=== PATIENT | female | born 1930 | race Caucasian/White ===

== ENCOUNTER 2017-11-23 10:19 | Inpatient (IN) | payer OTHER ==
[2017-11-23 10:58] VITALS: BMI 18.8
--- NOTE | 2017-11-23 11:03 | PDOC ---
History of Present Illness - General Chief Complaint: Irregular Heart Beat Stated Complaint: UNSTABLE HEART RHYTHM Time Seen by Provider: 11/23/17 11:03 - History of Present Illness Initial Comments: 11/23/17 11:38 Chief complaint weakness difficulty breathing History of present illness: This is an 85-year-old woman with past medical history significant for hypertension, Alzheimer dementia per family who presents to the emergency department with several day history of generalized weakness. Today was found to have a fast heart rate and hypoxia and decreased breath sounds per the visiting doctor and was sent to the emergency department via ambulance. History limited from patient secondary to dementia. History obtained from family at bedside. No vomiting no diarrhea no foul-smelling urine very close to baseline mental status may be slightly more lethargic than usual no history of trauma Past History - Past Medical History Allergies/Adverse Reactions: Allergies Allergy/AdvReac Type Severity Reaction Status Date / Time No Known Allergies Allergy Verified 11/23/17 10:43 Home Medications: Ambulatory Orders Memantine HCl [Namenda -] 5 mg PO DAILY 11/23/17 Memantine HCl [Namenda -] 10 mg PO HS 11/23/17 Anemia: Yes (FERNANDEZ CYTOPENIA) COPD: No Dementia: Yes HTN: Yes (IN THE PAST) Hypercholesterolemia: Yes - Surgical History Cholecystectomy: Yes - Immunization History Immunization Up to Date: No - Suicide/Smoking/Psychosocial Hx Smoking History: Never smoked Have you smoked in the past 12 months: No Hx Alcohol Use: No Drug/Substance Use Hx: No Substance Use Type: None Review of Systems - Review of Systems Comments:: 11/23/17 11:38 ROS: A complete review of 10 out of 10 review of systems is taken and is negative apart from what is previously mentioned below and in the HPI from the family *Physical Exam - Vital Signs Last Vital Signs Temp Pulse Resp BP Pulse Ox 100.1 F H 88 26 H 156/72 97 11/23/17 10:42 11/23/17 10:42 11/23/17 10:42 11/23/17 10:42 11/23/17 10:42 - Physical Exam Comments: 11/23/17 11:39 Vitals: Triage Vital signs reviewed General Appearance: no acute distress, well nourished well developed, Head: Atraumatic, Eyes: Pupils equal reactive round, extraocular movement intact Throat: Posterior oropharynx without erythema, mucous membranes moist, Neck: Supple;No Nucal rigidity Chest Wall: Nontender Cardiac: Regular rate and rhythym, no murmurs, no rubs, no gallops, Lungs: Coarse breath sounds bilaterally decreased breath sounds Abdomen: Soft, non distended, normal bowel sounds, non tender to palpation Extremities: Full range of motion to all extremities, no cyanosis, clubbing, or edema Skin: Warm and dry, no rashes or lesions, no rash, no petechiae Neuro: Cranial Nerves 2-12 grossly intact], Strength intact to all extremities, Sensation intact to all extremities,gait normal Psych: normal mood, normal affect ED Treatment Course - LABORATORY CBC & Chemistry Diagram: 11/23/17 11:40 11/23/17 11:40 Medical Decision Making - Medical Decision Making 11/23/17 11:43 Fever hypoxia tachypnea history examination consistent for possible early Sirs secondary to respiratory infection We'll check blood cultures chest x-ray influenza swab albuterol MDI oxygen and reassess 11/23/17 15:55 History examination chest x-ray findings most consistent with pneumonia. Given initial fever and tachypnea hypoxia for inspection antibiotics ordered. Patient noted to be anemic compared to laboratory analysis from 2015 hospitalist will follow-up Potassium being repleted Patient made DNR/DNI after long discussion with family We'll admit to hospitalist for further management *DC/Admit/Observation/Transfer Diagnosis at time of Disposition: Pneumonia Qualifiers: Pneumonia type: due to unspecified organism Laterality: bilateral Lung location : unspecified part of lung Qualified Code(s): J18.9 - Pneumonia, unspecified organism - Discharge Dispostion Condition at time of disposition: Fair Admit: Yes - Referrals Referrals: Poncho Velarde [Primary Care Provider] - - Patient Instructions - Post Discharge Activity
[2017-11-23] MEDS ORDERED: ACETAMINOPHEN 1000 MG/100 ML VIAL (NON FORMULARY) IVPB ONE (11:15)
[2017-11-23] MEDS ORDERED: ALBUTEROL SO4 18 GM HFA INHALER IH ONE (11:44)
[2017-11-23] MEDS ORDERED: ACETAMINOPHEN INJECTION 100 ML IVPB ONE (12:03)
[2017-11-23 12:26] LABS: ALBUMIN 1.3 g/dl (3.5-5.0); ALK PHOS 113 U/L (32-92); ANION GAP 4 (8-16); BILIRUBIN,TOTAL 0.6 mg/dl (0.2-1.0); BLOOD UREA NITROGEN 18 mg/dl (7-18); CALCIUM 7.1 mg/dl (8.4-10.2); CHLORIDE 101 mmol/L (98-107); CO2 30 mmol/L (22-28); CREATININE 0.7 mg/dl (0.6-1.3); GLUCOSE,RANDOM 102 mg/dl (74-106); SGOT/AST 43 U/L (10-42); SGPT/ALT 25 U/L (10-40); SODIUM 135 mmol/L (136-145); TOT PROT 5.1 g/dl (6.4-8.3)
[2017-11-23 12:42] LABS: EOS % 0.1 % (0-4.5); HEMATOCRIT 22.1 % (32.4-45.2); HEMOGLOBIN 7.4 GM/dl (10.7-15.3); MCH 36.2 pg (25.7-33.7); MCHC 33.3 g/dl (32.0-36.0); MEAN CELL VOLUME 108.7 fl (80-96); MEAN PLT VOLUME 8.6 fl (7.5-11.1); MONO % 1.1 % (3.8-10.2); NEUT % 86.8 % (42.8-82.8); PLATELET COUNT 83 K/MM3 (134-434); RBC 2.03 M/mm3 (3.60-5.2); RDW 13.3 % (11.6-15.6); WHITE BLOOD COUNT 2.1 K/mm3 (4.0-10.8)
[2017-11-23] MEDS ORDERED: PIPERACILLIN/TAZOB 3.375 GM 50 ML IVPB ONE (12:50)
[2017-11-23 12:56] LABS: POTASSIUM 2.6 mmol/L (3.5-5.1)
[2017-11-23] MEDS ORDERED: PIPERACIL/TAZOB 3.375 GM 3.375 GM/50 ML PREMIX IVPB ONE (13:00)
[2017-11-23 13:06] LABS: ACTIVATED PTT 20.2 SECONDS (24.0-38.9)
[2017-11-23] MEDS ORDERED: POTASSIUM CHLORIDE TABS 20 MEQ TABLET.ER (FP) PO ONE ×3 (13:06→18:58)
[2017-11-23 13:10] LABS: INR 1.37 (0.82-1.09); PROTHROMBIN TIME (PATIENT) 15.2 SEC (10.2-13.0)
[2017-11-23] MEDS ORDERED: KCL 10 MEQ IVPB 10 MEQ/100 ML INFUS.BAG IVPB ONE ×2 (13:13→14:17)
[2017-11-23] MEDS ORDERED: PIPERACILLIN/TAZOBACTAM 3.375 GM VIAL IVPB ONE (13:13)
[2017-11-23] MEDS: KCL 10 MEQ IVPB 10 MEQ/100 ML INFUS.BAG IVPB SCH ×3 (13:15→15:45)
[2017-11-23 13:33] LABS: VENOUS PH 7.47 (7.32-7.42); VENOUS PO2 24.2 mmHg (28-48)
[2017-11-23] MEDS ORDERED: ACETAMINOPHEN 325 MG TABLET (FP) PO PRN (15:58)
--- NOTE | 2017-11-23 16:04 | HP ---
CHIEF COMPLAINT: shortness of breath PCP: Dr Velarde HISTORY OF PRESENT ILLNESS: patient is a 85 y/o female with a past medical history of hypertension, Alzheimer' dementia, pancytopenia. Patient is a poor historian secondary to advanced dementia, history obtained from daughters. Patient resides at home with her and is cared for by both daughters. The daughters report, patient developed decreased appetite and generalized weakness, since Sunday, November 17, 2017. Daughter reports the weakness was progressing and she contacted the PCP. Patient was evaluated by her PCP, Dr Velarde at home and was found to have hypoxia and fast heart rate. She was referred to the emergency department for further evaluation. ER course was notable for: (1) temp 100.2 (2) hgb 7.2 (3)chest xray congestive and infilitrative changes Recent Travel: none PAST MEDICAL HISTORY: see hpi PAST SURGICAL HISTORY: cholesytecomy and hysterectomy Social History: resides at home with 92 year old ,daughters are primary care givers Smoking: none as per daughters Alcohol:none Drugs: none Family History: non contributory to this admission Allergies No Known Allergies Allergy (Verified 11/23/17 10:43) HOME MEDICATIONS: Home Medications Medication Instructions Recorded Memantine HCl [Namenda -] 5 mg PO DAILY 11/23/17 Memantine HCl [Namenda -] 10 mg PO HS 11/23/17 REVIEW OF SYSTEMS CONSTITUTIONAL: present: generalized weakness, malaise, loss of appetite, Absent: fever, chills, diaphoresis, weight change HEENT: Absent: rhinorrhea, nasal congestion, throat pain, throat swelling, difficulty swallowing, mouth swelling, ear pain, eye pain, visual changes CARDIOVASCULAR: Absent: chest pain, syncope, palpitations, irregular heart rate, lightheadedness , peripheral edema RESPIRATORY: present: shortness of breath Absent: cough,, dyspnea with exertion, orthopnea, wheezing, stridor, hemoptysis GASTROINTESTINAL: Absent: abdominal pain, abdominal distension, nausea, vomiting, diarrhea, constipation, melena, hematochezia GENITOURINARY: Absent: dysuria, frequency, urgency, hesitancy, hematuria, flank pain, genital pain MUSCULOSKELETAL: Absent: myalgia, arthralgia, joint swelling, back pain, neck pain SKIN: Absent: rash, itching, pallor HEMATOLOGIC/IMMUNOLOGIC: Absent: easy bleeding, easy bruising, lymphadenopathy, frequent infections ENDOCRINE: Absent: unexplained weight gain, unexplained weight loss, heat intolerance, cold intolerance NEUROLOGIC: Absent: headache, focal weakness or paresthesias, dizziness, unsteady gait, seizure, mental status changes, bladder or bowel incontinence PSYCHIATRIC: Absent: anxiety, depression, suicidal or homicidal ideation, hallucinations. PHYSICAL EXAMINATION Vital Signs - 24 hr 11/23/17 11/23/17 11/23/17 10:42 11:30 12:30 Temperature 100.1 F H Pulse Rate 86 Pulse Rate [ 79 86 Apical] Respiratory 26 H 19 19 Rate Blood Pressure 156/72 Blood Pressure 114/70 132/70 [Right Arm] O2 Sat by Pulse 97 96 96 Oximetry (%) 11/23/17 11/23/17 11/23/17 13:30 14:30 15:21 Temperature Pulse Rate Pulse Rate [ 74 80 67 Apical] Respiratory 21 17 21 Rate Blood Pressure Blood Pressure 122/64 126/70 121/70 [Right Arm] O2 Sat by Pulse 94 L 93 L 92 L Oximetry (%) GENERAL: Awake, alert, and fully oriented times person, agitated. HEAD: Normal with no signs of trauma. EYES: Pupils equal, round and reactive to light, extraocular movements intact, sclera anicteric, conjunctiva clear. No lid lag. EARS, NOSE, THROAT: Ears normal, nares patent, oropharynx clear without exudates. Moist mucous membranes. NECK: Normal range of motion, supple without lymphadenopathy, JVD, or masses. LUNGS: Breath sounds equal, course rhonchi to apexes, crackles to base with inspiratory wheezes, RR 24, No accessory muscle use. HEART: Regular rate and rhythm, normal S1 and S2 without murmur, rub or gallop. ABDOMEN: Soft, nontender, not distended, normoactive bowel sounds, no guarding, no rebound, no masses. No hepatomegaly or splenomegaly. MUSCULOSKELETAL: Normal range of motion at all joints. No bony deformities or tenderness. No CVA tenderness. UPPER EXTREMITIES: 2+ pulses, warm, well-perfused. No cyanosis. No clubbing. No peripheral edema. LOWER EXTREMITIES: 2+ pulses, warm, well-perfused. No calf tenderness. No peripheral edema. NEUROLOGICAL: Cranial nerves II-XII intact. Normal speech. Normal gait. PSYCHIATRIC: Cooperative. Good eye contact. Appropriate mood and affect. SKIN: Warm, dry, normal turgor, no rashes or lesions noted, normal capillary refill. Laboratory Results - last 24 hr 11/23/17 11/23/17 11/23/17 11:40 11:40 11:40 WBC 2.1 L D RBC 2.03 L D Hgb 7.4 L D Hct 22.1 L D MCV 108.7 H MCH 36.2 H D MCHC 33.3 RDW 13.3 Plt Count 83 L MPV 8.6 Neutrophils % 86.8 H Lymphocytes % 12.0 Monocytes % 1.1 L Eosinophils % 0.1 Basophils % 0.0 PT with INR 15.2 H INR 1.37 H PTT (Actin FS) 20.2 L VBG pH 7.47 H POC VBG pCO2 44.0 POC VBG pO2 24.2 L Mixed VBG HCO3 31.6 H Sodium Potassium Chloride Carbon Dioxide Anion Gap BUN Creatinine Creat Clearance w eGFR Random Glucose Lactic Acid Calcium Total Bilirubin AST ALT Alkaline Phosphatase Creatine Kinase Troponin I Total Protein Albumin 11/23/17 11/23/17 11:40 11:40 WBC RBC Hgb Hct MCV MCH MCHC RDW Plt Count MPV Neutrophils % Lymphocytes % Monocytes % Eosinophils % Basophils % PT with INR INR PTT (Actin FS) VBG pH POC VBG pCO2 POC VBG pO2 Mixed VBG HCO3 Sodium 135 L Potassium 2.6 L* D Chloride 101 Carbon Dioxide 30 H Anion Gap 4 L BUN 18 Creatinine 0.7 Creat Clearance w eGFR > 60 Random Glucose 102 D Lactic Acid 1.3 Calcium 7.1 L D Total Bilirubin 0.6 D AST 43 H D ALT 25 D Alkaline Phosphatase 113 H D Creatine Kinase Cancelled Troponin I Cancelled Total Protein 5.1 L Albumin 1.3 L D ASSESSMENT/PLAN: F/E/N - chopped diet - speech and swallow eval hypokalemia - kci 10meq x 3 given in ED, repeat bmp at 1700 - continous cardiac monitoring ppx - zantac - hold ac due to pancytopenia - scd - oob dispo: pt requires inpatient admission Problem List - Problem (1) Hypertension Assessment/Plan: - no home medications, b/p at goal - b/p q4h Code(s): I10 - ESSENTIAL (PRIMARY) HYPERTENSION (2) Alzheimer's dementia Assessment/Plan: - continue namenda home dosing - fall precautions Code(s): G30.9 - ALZHEIMER'S DISEASE, UNSPECIFIED; F02.80 - DEMENTIA IN OTH DISEASES CLASSD ELSWHR W/O BEHAVRL DISTURB (3) Pancytopenia Assessment/Plan: - hx of pancytopenia, monitor platelets, repeat cbc at 1800 Code(s): D61.818 - OTHER PANCYTOPENIA (4) Pneumonia Assessment/Plan: - chest xray reviewed, ct of chest, multiple bilateral upper and lower lung loco avelor infilitrates, possible intersital vascular congestion - pending urine antigens, follow blood cultures, monitor fever curve, zosyn given in ED, pt does reside at home, due to multilobar infilirates continue zosyn, appreciate ID input - standing duonebs, keep spo2 above 92% with supplemental O2 Code(s): J18.9 - PNEUMONIA, UNSPECIFIED ORGANISM Qualifiers: Pneumonia type: due to unspecified organism Laterality: bilateral Lung location: unspecified part of lung Qualified Code(s): J18.9 - Pneumonia, unspecified organism Visit type - Emergency Visit Emergency Visit: Yes ED Registration Date: 11/23/17 Care time: The patient presented to the Emergency Department on the above date and was hospitalized for further evaluation of their emergent condition. - New Patient This patient is new to me today: Yes Date on this admission: 11/23/17 - Critical Care Critical Care patient: No
[2017-11-23 16:49] LABS: PH,URINE 5.5 (4.5-8); URINE APPEARANCE Clear; URINE BILIRUBIN Negative (NEGATIVE); URINE BLOOD Negative (NEGATIVE); URINE GLUCOSE (UA) Negative (NEGATIVE); URINE KETONE Negative (NEGATIVE); URINE LEUK ESTERASE Negative (NEGATIVE); URINE NITRITE Negative (NEGATIVE)
[2017-11-23 16:53] LABS: URINE COLOR YELLOW; URINE PROTEIN 1+ (NEGATIVE)
[2017-11-23] MEDS ORDERED: ALBUTEROL SO4 2.5/IPRATROPIUM 0.5 INH SOL 3 ML VIAL.NEB. NEB ONE ×2 (17:48→18:57)
[2017-11-23] MEDS ORDERED: VANCOMYCIN 1,000 MG in DEXTROSE 5%-WATER - 250 ML IVPB ONE (17:51)
[2017-11-23 18:36] LABS: HEMATOCRIT 20.5 % (32.4-45.2); MCH 36.2 pg (25.7-33.7); MCHC 33.1 g/dl (32.0-36.0); MEAN CELL VOLUME 109.2 fl (80-96); MEAN PLT VOLUME 8.2 fl (7.5-11.1); PLATELET COUNT 69 K/MM3 (134-434); RBC 1.88 M/mm3 (3.60-5.2); RDW 13.3 % (11.6-15.6); WHITE BLOOD COUNT 1.9 K/mm3 (4.0-10.8)
[2017-11-23] MEDS ORDERED: VANCOMYCIN 1,000 MG VIAL (RESTRICTED TO ID ONLY) ONE (18:36)
[2017-11-23 18:44] LABS: HEMOGLOBIN 6.8 GM/dl (10.7-15.3)
[2017-11-23 18:47] LABS: ANION GAP 2 (8-16); BLOOD UREA NITROGEN 16 mg/dl (7-18); CHLORIDE 106 mmol/L (98-107); CO2 28 mmol/L (22-28); CREATININE 0.6 mg/dl (0.6-1.3); GLUCOSE,RANDOM 120 mg/dl (74-106); MAGNESIUM 1.7 mg/dL (1.8-2.4); POTASSIUM 3.3 mmol/L (3.5-5.1); SODIUM 136 mmol/L (136-145)
[2017-11-23 18:48] LABS: CALCIUM 6.8 mg/dl (8.4-10.2)
[2017-11-23] MEDS ORDERED: MAGNESIUM SULF 50% (8.12 MEQ/2 ML-1 GM VIAL) ONE (18:58)
[2017-11-23] MEDS ORDERED: FUROSEMIDE 40 MG/4 ML INJECTABLE VIAL IVPUSH ONE (19:00)
[2017-11-23] MEDS: POTASSIUM CHLORIDE TABS 20 MEQ TABLET.ER (FP) PO ONE (19:00)
[2017-11-23] MEDS: MAGNESIUM SULFATE 2 GM in SODIUM CHLORIDE 100 ML IVPB ONE (19:05)
[2017-11-23] MEDS ORDERED: FUROSEMIDE 40 MG/4 ML INJECTABLE VIAL ONE (19:20)
[2017-11-23] MEDS ORDERED: LORazepam 2 MG/ML SDV VIAL IVPUSH ONE (20:15)
[2017-11-23] MEDS ORDERED: LORazepam 2 MG/ML SDV VIAL ONE (20:21)
[2017-11-23 20:29] LABS: EPI CELLS FEW /HPF; URINE BACTERIA MODERATE /hpf (NEGATIVE); URINE RBC 0-2 /hpf (0-3); URINE WBC 0-1 (0-5)
[2017-11-23] MEDS: ALBUTEROL SO4 2.5/IPRATROPIUM 0.5 INH SOL 3 ML VIAL.NEB. NEB SCH (20:36)
[2017-11-23 21:48] LABS: MACROCYTOSIS 1+; PLATELET ESTIMATE DECREASED
[2017-11-23] MEDS ORDERED: MEMANTINE HCL 10 MG TABLET (FP) PO SCH (22:00)
[2017-11-24] MEDS: PIPERACILLIN/TAZOB 3.375 GM 3.375 GM in DEXTROSE 5%-WATER - 100 ML IVPB SCH ×3 (03:00→18:15)
[2017-11-24] MEDS: DOCUSATE SODIUM 100 MG CAPSULE (FP) PO SCH ×2 (03:47→06:35)
[2017-11-24] MEDS: MAGNESIUM SULFATE 2 GM in SODIUM CHLORIDE 100 ML IVPB ONE (03:47)
[2017-11-24] MEDS: ALBUTEROL SO4 2.5/IPRATROPIUM 0.5 INH SOL 3 ML VIAL.NEB. NEB SCH ×4 (08:10→20:16)
--- NOTE | 2017-11-24 08:38 | PN ---
Progress Note (short form) - Note Progress Note: ID Consult dictated Multilobar pneumonia Sepsis secondary to pneumonia Pancytopenia (chronic) ANC 1.7 OBS Await cultures Continue empiric zosyn + stat dose vancomycin ?transfuse
--- NOTE | 2017-11-24 09:05 | CONS ---
DATE OF CONSULTATION: HISTORY: The patient is an 87-year-old demented female admitted from home with pneumonia. History was obtained from the chart as she cannot give a history secondary to dementia. She had apparently had increasing weakness and anorexia for several days at home. She was seen by her primary care doctor at home. She was noted to be tachypneic and tachycardic. She was referred to the emergency room for evaluation. Imaging of the chest reveals bilateral pleural effusions, bibasilar impressive atelectasis, right upper, left upper, and left lower lobe infiltrates. She was empirically treated with Zosyn. At the present time, she is awake. She is not verbally responsive. She offers no complaints. She appears to be dyspneic at rest with occasional cough. The patient lives at home. No known ill contacts. No recent hospitalizations. She is a nonsmoker. Influenza swab was negative. The patient has a history of pancytopenia dating back to at least 2014. PAST MEDICAL HISTORY: Positive for dementia, hypertension, pancytopenia. PAST SURGICAL HISTORY: Status post cholecystectomy and hysterectomy. ALLERGIES: No known allergies. MEDICATIONS: Namenda. SOCIAL HISTORY: Lives at home. Nonsmoker. Nondrinker. SYSTEMS REVIEW: Neurologic: Positive for dementia. No loss of consciousness, seizure activity, or focal weakness. Cardiac: Negative chest pain. Respiratory: As per HPI. Gastrointestinal: Negative vomiting or diarrhea. Genitourinary: Negative for urinary tract infection. LABORATORY DATA: White count 1.9 with 80 neutrophils, 10 bands, 10 lymphocytes, absolute neutrophil count 1.7, hematocrit 20.5, platelet count 69, BUN 16, creatinine 0.6. Urinalysis: 0-1 white cell. Influenza swab negative. Blood cultures pending. Legionella and pneumococcal antigens pending. Sputum culture ordered. PHYSICAL EXAMINATION: General: She is an elderly female. She is cachectic. Slightly dyspneic at rest. Vital Signs: Temperature 98.2, T-max 100.1, blood pressure 150/82, pulse 93 and regular, respirations 20 per minute. HEENT: Sclerae anicteric. Temporal wasting. Dry mucous membranes. Heart: Sounds S1, S2. No murmur. Lungs: Bilateral rhonchi and crepitations right greater than left lung field. Abdomen: Soft. No tenderness elicited. No mass, rebound, or rigidity. Extremities: Negative for edema. The right lower extremity is held in a flexed position, and the patient cries out when it is extended. IMPRESSION: 1. Multilobar pneumonia. 2. Sepsis secondary to pneumonia. 3. Pancytopenia. 4. Dementia. PLAN: Await culture results. Continue empiric Zosyn plus STAT dose vancomycin. Pending culture results, would consider blood transfusion. Thank you for the kind referral. LAMONTE ZABALA M.D. [id number]
--- NOTE | 2017-11-24 09:36 | PN ---
Physical Exam: SUBJECTIVE: Patient seen and examined. OBJECTIVE: Vital Signs Period Temp Pulse Resp BP Sys/Rocha Pulse Ox Last 24 Hr 97.1 F-100.1 F 67-104 17-26 114-156/59-82 81-97 GENERAL/NEURO: The patient does not respond to verbal commands. Thin, frail, cachectic. Temporal wasting. Protruding clavicles. LUNGS: Tachypnic, +accessory muscle use. Diffuse rhonchi. HEART: Regular rate and rhythm, S1, S2 ABDOMEN: Soft, nontender, nondistended, EXTREMITIES: Lower extremities contracted Laboratory Results - last 24 hr 11/23/17 11/23/17 11/23/17 11:40 11:40 11:40 WBC 2.1 L D RBC 2.03 L D Hgb 7.4 L D Hct 22.1 L D MCV 108.7 H MCH 36.2 H D MCHC 33.3 RDW 13.3 Plt Count 83 L MPV 8.6 Neutrophils % 86.8 H Neutrophils % (Manual) Band Neutrophils % Lymphocytes % 12.0 Lymphocytes % (Manual) Monocytes % 1.1 L Eosinophils % 0.1 Basophils % 0.0 Platelet Estimate Macrocytosis Retic Count PT with INR 15.2 H INR 1.37 H PTT (Actin FS) 20.2 L VBG pH 7.47 H POC VBG pCO2 44.0 POC VBG pO2 24.2 L Mixed VBG HCO3 31.6 H Sodium Potassium Chloride Carbon Dioxide Anion Gap BUN Creatinine Creat Clearance w eGFR Random Glucose Lactic Acid Calcium Magnesium Total Bilirubin AST ALT Alkaline Phosphatase Creatine Kinase Troponin I Total Protein Albumin Urine Color Urine Appearance Urine pH Ur Specific [place] Urine Protein Urine Glucose (UA) Urine Ketones Urine Blood Urine Nitrite Urine Bilirubin Urine Urobilinogen Ur Leukocyte Esterase Urine RBC Urine WBC Ur Epithelial Cells Urine Bacteria Stool Occult Blood Blood Type Antibody Screen Crossmatch 11/23/17 11/23/17 11/23/17 11:40 11:40 13:15 WBC RBC Hgb Hct MCV MCH MCHC RDW Plt Count MPV Neutrophils % Neutrophils % (Manual) Band Neutrophils % Lymphocytes % Lymphocytes % (Manual) Monocytes % Eosinophils % Basophils % Platelet Estimate Macrocytosis Retic Count PT with INR INR PTT (Actin FS) VBG pH POC VBG pCO2 POC VBG pO2 Mixed VBG HCO3 Sodium 135 L Potassium 2.6 L* D Chloride 101 Carbon Dioxide 30 H Anion Gap 4 L BUN 18 Creatinine 0.7 Creat Clearance w eGFR > 60 Random Glucose 102 D Lactic Acid 1.3 Calcium 7.1 L D Magnesium Total Bilirubin 0.6 D AST 43 H D ALT 25 D Alkaline Phosphatase 113 H D Creatine Kinase Cancelled Troponin I Cancelled Total Protein 5.1 L Albumin 1.3 L D Urine Color Urine Appearance Urine pH Ur Specific [place] Urine Protein Urine Glucose (UA) Urine Ketones Urine Blood Urine Nitrite Urine Bilirubin Urine Urobilinogen Ur Leukocyte Esterase Urine RBC Urine WBC Ur Epithelial Cells Urine Bacteria Stool Occult Blood Blood Type A POSITIVE Antibody Screen Crossmatch 11/23/17 11/23/17 11/23/17 14:25 14:25 14:33 WBC RBC Hgb Hct MCV MCH MCHC RDW Plt Count MPV Neutrophils % Neutrophils % (Manual) Band Neutrophils % Lymphocytes % Lymphocytes % (Manual) Monocytes % Eosinophils % Basophils % Platelet Estimate Macrocytosis Retic Count PT with INR INR PTT (Actin FS) VBG pH POC VBG pCO2 POC VBG pO2 Mixed VBG HCO3 Sodium Potassium Chloride Carbon Dioxide Anion Gap BUN Creatinine Creat Clearance w eGFR Random Glucose Lactic Acid 1.1 Calcium Magnesium Total Bilirubin AST ALT Alkaline Phosphatase Creatine Kinase Troponin I 0.04 Total Protein Albumin Urine Color Urine Appearance Urine pH Ur Specific [place] Urine Protein Urine Glucose (UA) Urine Ketones Urine Blood Urine Nitrite Urine Bilirubin Urine Urobilinogen Ur Leukocyte Esterase Urine RBC Urine WBC Ur Epithelial Cells Urine Bacteria Stool Occult Blood Blood Type A POSITIVE Antibody Screen Negative Crossmatch See Detail 11/23/17 11/23/17 11/23/17 14:33 15:45 18:10 WBC 1.9 L* RBC 1.88 L Hgb 6.8 L* Hct 20.5 L MCV 109.2 H MCH 36.2 H MCHC 33.1 RDW 13.3 Plt Count 69 L MPV 8.2 Neutrophils % No Result Required. Neutrophils % (Manual) 80.0 Band Neutrophils % 10.0 Lymphocytes % No Result Required. Lymphocytes % (Manual) 10.0 Monocytes % Eosinophils % Basophils % Platelet Estimate Decreased Macrocytosis 1+ Retic Count PT with INR INR PTT (Actin FS) VBG pH POC VBG pCO2 POC VBG pO2 Mixed VBG HCO3 Sodium Potassium Chloride Carbon Dioxide Anion Gap BUN Creatinine Creat Clearance w eGFR Random Glucose Lactic Acid Calcium Magnesium Total Bilirubin AST ALT Alkaline Phosphatase Creatine Kinase 30 Troponin I Total Protein Albumin Urine Color Yellow Urine Appearance Clear Urine pH 5.5 Ur Specific [place] 1.020 Urine Protein 1+ H Urine Glucose (UA) Negative Urine Ketones Negative Urine Blood Negative Urine Nitrite Negative Urine Bilirubin Negative Urine Urobilinogen 1.0 Ur Leukocyte Esterase Negative Urine RBC 0-2 Urine WBC 0-1 Ur Epithelial Cells Few Urine Bacteria Moderate Stool Occult Blood Blood Type Antibody Screen Crossmatch 11/23/17 11/23/17 11/23/17 18:12 18:12 19:10 WBC RBC Hgb Hct MCV MCH MCHC RDW Plt Count MPV Neutrophils % Neutrophils % (Manual) Band Neutrophils % Lymphocytes % Lymphocytes % (Manual) Monocytes % Eosinophils % Basophils % Platelet Estimate Macrocytosis Retic Count 1.06 PT with INR INR PTT (Actin FS) VBG pH POC VBG pCO2 POC VBG pO2 Mixed VBG HCO3 Sodium 136 Potassium 3.3 L D Chloride 106 Carbon Dioxide 28 Anion Gap 2 L BUN 16 Creatinine 0.6 Creat Clearance w eGFR Random Glucose 120 H Lactic Acid Calcium 6.8 L* Magnesium 1.7 L Total Bilirubin AST ALT Alkaline Phosphatase Creatine Kinase Troponin I Total Protein Albumin Urine Color Urine Appearance Urine pH Ur Specific [place] Urine Protein Urine Glucose (UA) Urine Ketones Urine Blood Urine Nitrite Urine Bilirubin Urine Urobilinogen Ur Leukocyte Esterase Urine RBC Urine WBC Ur Epithelial Cells Urine Bacteria Stool Occult Blood Negative Blood Type Antibody Screen Crossmatch Active Medications Generic Name Dose Route Start Last Admin Trade Name Ajit PRN Reason Stop Dose Admin Acetaminophen 650 mg 11/23/17 15:58 Tylenol - PO Q4H PRN FEVER Albuterol/Ipratropium 1 amp 11/23/17 20:00 11/23/17 20:36 Duoneb - NEB 1 amp RQID ANIKET Administration Docusate Sodium 100 mg 11/23/17 22:00 11/24/17 06:35 Colace - PO Not Given TID ANIKET Piperacillin Sod/Tazobactam 100 mls @ 200 mls/hr 11/23/17 18:00 11/24/17 03: 00 Sod 3.375 gm/ Dextrose IVPB 200 mls/hr Q8H-IV ANIKET Administration Protocol Memantine 5 mg 11/24/17 10:00 Namenda - PO DAILY ANIKET Memantine 10 mg 11/23/17 22:00 11/24/17 03:47 Namenda - PO Not Given HS ANIKET Ranitidine HCl 150 mg 11/24/17 10:00 Zantac - PO DAILY ANIKET ASSESSMENT/PLAN: 87 year-old female with a PMH significant for HTN, Alzheimer's dementia, and chronic pancytopenia. Admitted for multilobar pneumonia. Community acquired multilobar pneumonia --Tm 100.1; +accessory muscle use, increased work of breathing, RR 30, agitated, restless --daughter and at bedside; daughter is HCP; she wants comfort measures only and states her two siblings agree --DNR/DNI; no further blood draws or imaging; daughter does want antibiotics to be continued at this time --morphine 1mg q3h for respiratory distress --IV fluids KVO Pancytopenia, chronic Macrocytic anemia --transfused 2U PRBC overnight, Hgb 6.8-->11.2 Alzheimer's dementia --Haldol x 1 in ED for agitation Dispo: comfort measures only. Continue IV antibiotics for now. Stop PO meds. No blood draws. DNR/DNI Visit type - Emergency Visit Emergency Visit: Yes ED Registration Date: 11/23/17 Care time: The patient presented to the Emergency Department on the above date and was hospitalized for further evaluation of their emergent condition. - New Patient This patient is new to me today: Yes Date on this admission: 11/24/17 - Critical Care Critical Care patient: No
[2017-11-24] MEDS ORDERED: RANITIDINE HCL 150 MG TABLET (FP) PO SCH (10:00)
[2017-11-24] MEDS ORDERED: MEMANTINE HCL 5 MG TABLET (UD) PO SCH (10:00)
[2017-11-24 11:13] LABS: ALBUMIN 1.6 g/dl (3.5-5.0); ALK PHOS 127 U/L (32-92); ANION GAP 7 (8-16); BILIRUBIN,TOTAL 1.4 mg/dl (0.2-1.0); BLOOD UREA NITROGEN 17 mg/dl (7-18); CALCIUM 7.5 mg/dl (8.4-10.2); CHLORIDE 95 mmol/L (98-107); CO2 34 mmol/L (22-28); CREATININE 0.8 mg/dl (0.6-1.3); GLUCOSE,RANDOM 131 mg/dl (74-106); MAGNESIUM 1.9 mg/dL (1.8-2.4); PHOSPHOROUS 3.8 mg/dl (2.5-4.6); SGOT/AST 36 U/L (10-42); SGPT/ALT 25 U/L (10-40); SODIUM 136 mmol/L (136-145); TOT PROT 5.9 g/dl (6.4-8.3)
[2017-11-24 11:38] LABS: HEMATOCRIT 33.8 % (32.4-45.2); HEMOGLOBIN 11.2 GM/dl (10.7-15.3); MCH 33.3 pg (25.7-33.7); PLATELET COUNT 76 K/MM3 (134-434); RBC 3.35 M/mm3 (3.60-5.2); RDW 20.6 % (11.6-15.6); WHITE BLOOD COUNT 2.3 K/mm3 (4.0-10.8)
[2017-11-24 11:41] LABS: ADD RBC MORPHOLOGY YES
[2017-11-24 12:07] LABS: ANISOCYTOSIS 3+
--- NOTE | 2017-11-24 12:31 | EKG ---
Test Reason : Blood Pressure : / mmHG Vent. Rate : 087 BPM Atrial Rate : 087 BPM P-R Int : 208 ms QRS Dur : 084 ms QT Int : 402 ms P-R-T Axes : 050 011 072 degrees QTc Int : 483 ms POOR DATA QUALITY, INTERPRETATION MAY BE ADVERSELY AFFECTED NORMAL SINUS RHYTHM CANNOT RULE OUT SEPTAL INFARCT , AGE UNDETERMINED Delayed R wave progression NO PREVIOUS ECGS AVAILABLE Given poor quality of current study, would recommend repeat ECG Confirmed by JUAN CORDOVA MD ([id number]) on 11/24/2017 12:30:53 PM Referred By: DR LEWIS Confirmed By:JUAN CORDOVA MD
[2017-11-24] MEDS ORDERED: ACETAMINOPHEN 650 MG SUPP.RECT PR PRN (13:14)
[2017-11-24] MEDS ORDERED: morphine CARPU-JECT 2 MG/1 ML DISP.SYRIN IVPUSH ONE (13:17)
[2017-11-24] MEDS: SODIUM CHLORIDE 250 ML IV SCH (13:40)
[2017-11-24] MEDS ORDERED: morphine CARPU-JECT 2 MG/1 ML DISP.SYRIN ONE (16:07)
[2017-11-25] MEDS: PIPERACILLIN/TAZOB 3.375 GM 3.375 GM in DEXTROSE 5%-WATER - 100 ML IVPB SCH ×4 (01:27→19:32)
[2017-11-25] MEDS: ALBUTEROL SO4 2.5/IPRATROPIUM 0.5 INH SOL 3 ML VIAL.NEB. NEB SCH ×4 (08:10→22:20)
--- NOTE | 2017-11-25 09:09 | PN ---
Physical Exam: SUBJECTIVE: Patient seen and examined OBJECTIVE: Vital Signs Period Temp Pulse Resp BP Sys/Rocha Pulse Ox Last 24 Hr 98.0 F-98.6 F 100-103 16-20 103-166/66-80 88-97 GENERAL/NEURO: The patient does not respond to verbal commands. Thin, frail, cachectic. Temporal wasting. Protruding clavicles. No signs of agitation or restlessness. LUNGS: Breathing unlabored, no accessory muscle use HEART: Regular rate and rhythm, S1, S2 ABDOMEN: Soft, nontender, nondistended, EXTREMITIES: Lower extremities contracted Laboratory Results - last 24 hr 11/24/17 11/24/17 09:24 09:24 WBC 2.3 L RBC 3.35 L D Hgb 11.2 D Hct 33.8 D MCV 101.0 H MCH 33.3 MCHC 33.0 RDW 20.6 H D Plt Count 76 L MPV 9.0 Neutrophils % No Result Required. Neutrophils % (Manual) 76.0 Band Neutrophils % 4.0 Lymphocytes % No Result Required. Lymphocytes % (Manual) 18.0 Monocytes % (Manual) 2 L Hypochromia Few Anisocytosis 3+ Sodium 136 Potassium 3.0 L Chloride 95 L D Carbon Dioxide 34 H D Anion Gap 7 L BUN 17 Creatinine 0.8 D Creat Clearance w eGFR > 60 Random Glucose 131 H Calcium 7.5 L Phosphorus 3.8 Magnesium 1.9 Total Bilirubin 1.4 H D AST 36 ALT 25 Alkaline Phosphatase 127 H Total Protein 5.9 L Albumin 1.6 L D Active Medications Generic Name Dose Route Start Last Admin Trade Name Freq PRN Reason Stop Dose Admin Acetaminophen 650 mg 11/24/17 13:14 Tylenol Suppository - [place] Q4H PRN FEVER Albuterol/Ipratropium 1 amp 11/23/17 20:00 11/24/17 20:16 Duoneb - NEB 1 amp RQID ANIKET Administration Piperacillin Sod/Tazobactam 100 mls @ 200 mls/hr 11/23/17 18:00 11/25/17 01: 27 Sod 3.375 gm/ Dextrose IVPB 200 mls/hr Q8H-IV ANIKET Administration Protocol Sodium Chloride 250 mls @ 20 mls/hr 11/24/17 13:30 11/24/17 13:40 Normal Saline - IV 20 mls/hr ASDIR ANIKET Administration ASSESSMENT/PLAN: 87 year-old female with a PMH significant for HTN, Alzheimer's dementia, and chronic pancytopenia. Admitted for multilobar pneumonia. Community acquired multilobar pneumonia --afebrile, leukopenic --DNR/DNI; comfort measures; no further blood draws or imaging; daughter does want antibiotics to be continued at this time --morphine 1mg q3h for respiratory distress --IV fluids KVO Pancytopenia, chronic Macrocytic anemia --last transfused 11/25 Alzheimer's dementia --periods of agitation Dispo: comfort measures only. Continue IV antibiotics for now. Stop PO meds. No blood draws. DNR/DNI Visit type - Emergency Visit Emergency Visit: Yes ED Registration Date: 11/23/17 Care time: The patient presented to the Emergency Department on the above date and was hospitalized for further evaluation of their emergent condition. - New Patient This patient is new to me today: No - Critical Care Critical Care patient: No
[2017-11-25 10:11] LABS: ALBUMIN 1.5 g/dl (3.5-5.0); ALK PHOS 121 U/L (32-92); ANION GAP 10 (8-16); BILIRUBIN,TOTAL 1.1 mg/dl (0.2-1.0); BLOOD UREA NITROGEN 21 mg/dl (7-18); CALCIUM 7.5 mg/dl (8.4-10.2); CHLORIDE 100 mmol/L (98-107); CO2 31 mmol/L (22-28); CREATININE 0.9 mg/dl (0.6-1.3); GLUCOSE,RANDOM 78 mg/dl (74-106); SGOT/AST 31 U/L (10-42); SGPT/ALT 19 U/L (10-40); SODIUM 141 mmol/L (136-145); TOT PROT 5.8 g/dl (6.4-8.3)
--- NOTE | 2017-11-25 10:22 | PN ---
Progress Note, Physician History of Present Illness: Awake. Not conversant. Cries out when examined Temps down. Afebrile Slightly tachypneic Breathing non- labored BC no growth - Current Medication List Current Medications: Active Medications Acetaminophen (Tylenol Suppository -) 650 mg [place] Q4H PRN PRN Reason: FEVER Albuterol/Ipratropium (Duoneb -) 1 amp NEB RQID ANIKET Last Admin: 11/24/17 20:16 Dose: 1 amp Piperacillin Sod/Tazobactam (Sod 3.375 gm/ Dextrose) 100 mls @ 200 mls/hr IVPB Q8H-IV ANIKET PRN Reason: Protocol Last Admin: 11/25/17 01:27 Dose: 200 mls/hr Sodium Chloride (Normal Saline -) 250 mls @ 20 mls/hr IV ASDIR ANIKET Last Admin: 11/24/17 13:40 Dose: 20 mls/hr - Objective Vital Signs: Vital Signs Temperature 98.4 F 11/25/17 05:00 Pulse Rate 100 H 11/25/17 05:00 Respiratory Rate 19 11/25/17 08:33 Blood Pressure 166/80 11/25/17 05:00 O2 Sat by Pulse Oximetry (%) 97 11/25/17 08:33 Constitutional: Yes: No Distress, Cachectic Eyes: Yes: Conjunctiva Clear Cardiovascular: Yes: Regular Rate and Rhythm, S1, S2 Respiratory: Yes: Rhonchi Gastrointestinal: Yes: Normal Bowel Sounds, Soft. No: Tenderness Edema: No Labs: CBC, BMP 11/24/17 09:24 11/25/17 08:23 INR, PTT INR 1.37 (0.82-1.09) H 11/23/17 11:40 Assessment/Plan Multilobar pneumonia Sepsis secondary to pneumonia Pancytopenia OBS Continue empiric zosyn Family requesting palliative care
[2017-11-25] MEDS ORDERED: morphine CARPU-JECT 2 MG/1 ML DISP.SYRIN IVPUSH PRN (11:28)
[2017-11-25] MEDS: SODIUM CHLORIDE 250 ML IV SCH (16:07)
[2017-11-25] MEDS: POTASSIUM CHLORIDE TABS 20 MEQ TABLET.ER (FP) PO ONE (19:32)
[2017-11-26] MEDS: PIPERACILLIN/TAZOB 3.375 GM 3.375 GM in DEXTROSE 5%-WATER - 100 ML IVPB SCH ×2 (02:04→09:26)
[2017-11-26 06:07] LABS: SERUM IRON SATURATION 28 % (15-55); TOTAL IRON BINDING CAPACITY 90 ug/dL (250-450); UIBC 65 ug/dL (118-369)
[2017-11-26] MEDS: ALBUTEROL SO4 2.5/IPRATROPIUM 0.5 INH SOL 3 ML VIAL.NEB. NEB SCH ×3 (08:38→15:15)
--- NOTE | 2017-11-26 10:01 | PN ---
Physical Exam: SUBJECTIVE: Patient seen and examined, lethargic only opens eyes to her name. diana, , and son at bedside. OBJECTIVE:87 year-old female with a PMH significant for HTN, Alzheimer's dementia, and chronic pancytopenia. Admitted for multilobar pneumonia. Vital Signs Period Temp Pulse Resp BP Sys/Rocha Pulse Ox Last 24 Hr 97.6 F-98.6 F 86-91 18-20 145-170/77-84 93-95 GENERAL: lethargic, opens eyes to name, and oriented times person. HEAD: Normal with no signs of trauma. EYES: Pupils equal, round and reactive to light, extraocular movements intact, sclera anicteric, conjunctiva clear. No lid lag. EARS, NOSE, THROAT: Ears normal, nares patent, oropharynx clear without exudates. Moist mucous membranes. NECK: Normal range of motion, supple without lymphadenopathy, JVD, or masses. LUNGS: Breath sounds equal, course rhonchi to apexes, crackles to base with inspiratory wheezes, RR 24, No accessory muscle use. HEART: Regular rate and rhythm, normal S1 and S2 without murmur, rub or gallop. ABDOMEN: Soft, nontender, not distended, normoactive bowel sounds, no guarding, no rebound, no masses. No hepatomegaly or splenomegaly. MUSCULOSKELETAL: Normal range of motion at all joints. No bony deformities or tenderness. No CVA tenderness. UPPER EXTREMITIES: 2+ pulses, warm, well-perfused. No cyanosis. No clubbing. No peripheral edema. LOWER EXTREMITIES: 2+ pulses, warm, well-perfused. No calf tenderness. No peripheral edema. NEUROLOGICAL: Cranial nerves II-XII intact. Normal speech. Normal gait. PSYCHIATRIC: Cooperative. Good eye contact. Appropriate mood and affect. SKIN: Warm, dry, normal turgor, no rashes or lesions noted, normal capillary refill. Laboratory Results - last 24 hr 11/23/17 11/25/17 18:12 08:23 Sodium 141 Potassium 3.0 L Chloride 100 Carbon Dioxide 31 H Anion Gap 10 BUN 21 H D Creatinine 0.9 Creat Clearance w eGFR 58.95 Random Glucose 78 D Calcium 7.5 L Magnesium 2.0 Iron 25 L TIBC 90 L Iron Saturation 28 Total Bilirubin 1.1 H D AST 31 ALT 19 D Alkaline Phosphatase 121 H Total Protein 5.8 L Albumin 1.5 L Active Medications Generic Name Dose Route Start Last Admin Trade Name Freq PRN Reason Stop Dose Admin Acetaminophen 650 mg 11/24/17 13:14 Tylenol Suppository - [place] Q4H PRN FEVER Albuterol/Ipratropium 1 amp 11/23/17 20:00 11/26/17 08:38 Duoneb - NEB 1 amp RQID ANIKET Administration Piperacillin Sod/Tazobactam 100 mls @ 200 mls/hr 11/23/17 18:00 11/26/17 09: 26 Sod 3.375 gm/ Dextrose IVPB 200 mls/hr Q8H-IV ANIKET Administration Protocol Sodium Chloride 250 mls @ 20 mls/hr 11/24/17 13:30 11/25/17 16:07 Normal Saline - IV 20 mls/hr ASDIR ANIKET Administration Morphine Sulfate 1 mg 11/25/17 11:28 Morphine Injection - IVPUSH Q3H PRN PAIN LEVEL 4 - 6 Microbiology 11/23/17 11:30 Blood - Peripheral Venous Blood Culture - Preliminary NO GROWTH OBTAINED AFTER 72 HOURS, INCUBATION TO CONTINUE FOR 2 DAYS. 11/23/17 11:40 Blood - Peripheral Venous Blood Culture - Preliminary NO GROWTH OBTAINED AFTER 72 HOURS, INCUBATION TO CONTINUE FOR 2 DAYS. 11/23/17 15:45 Urine - Urine Clean Catch Urine Culture - Final NO GROWTH OBTAINED 11/23/17 18:12 Urine For Antigen Detection Legionella Antigen - Final, negative 11/23/17 18:12 Urine For Antigen Detection Streptococcus pneumoniae Antigen (M - Final, negative 11/23/17 11:40 Nasopharyngeal Swab Influenza Types A,B Antigen (MATTI) - Preliminary 11/23/17 11:40 Nasopharyngeal Swab - Preliminary ASSESSMENT/PLAN: 1) Community acquired multilobar pneumonia - remains afebrile, family wants comfort measures only, agree to abx, comfort measures only - continue 1mg morphine iv q3h for resp distress 2) heme macrocytic anemia - 2 units of prbc 11/25/17 pancytopenia, chronic 3)neuro alzheimers' dementia 4) f/e/n severe malnutritions - comfort measures only, continue chopped diet Dispo: comfort measures only. Continue IV antibiotics for now. Stop PO meds. No blood draws. DNR/DNI Problem List - Problems (1) Hypertension Code(s): I10 - ESSENTIAL (PRIMARY) HYPERTENSION (2) Alzheimer's dementia Code(s): G30.9 - ALZHEIMER'S DISEASE, UNSPECIFIED; F02.80 - DEMENTIA IN OTH DISEASES CLASSD ELSWHR W/O BEHAVRL DISTURB (3) Pancytopenia Code(s): D61.818 - OTHER PANCYTOPENIA (4) Pneumonia Code(s): J18.9 - PNEUMONIA, UNSPECIFIED ORGANISM Qualifiers: Pneumonia type: due to unspecified organism Laterality: bilateral Lung location: unspecified part of lung Qualified Code(s): J18.9 - Pneumonia, unspecified organism
[2017-11-26] MEDS ORDERED: D5-NS + 20 MEQ KCL - 20 MEQ/1,000 ML INFUS.BAG IV SCH (13:00)
[2017-11-26 14:54] VITALS: BP 143/65; PULSE 90; TEMP 97.8
--- NOTE | 2017-11-26 15:22 | DS ---
Physical Exam: SUBJECTIVE: Patient seen and examined Patient seen and examined, lethargic only opens eyes to her name. diana, , and son at bedside. OBJECTIVE: patient is a 85 y/o female with a past medical history of hypertension, Alzheimer' dementia, pancytopenia. Patient is a poor historian secondary to advanced dementia, history obtained from daughters. Patient resides at home with her and is cared for by both daughters. The daughters report, patient developed decreased appetite and generalized weakness, since Friday, November 17, 2017. Daughter reports the weakness was progressing and she contacted the PCP. Patient was evaluated by her PCP, Dr Velarde at home and was found to have hypoxia and fast heart rate. She was referred to the emergency department for further evaluation. ER course was notable for: (1) temp 100.2 (2) hgb 7.2 (3)chest xray congestive and infilitrative changes Vital Signs Period Temp Pulse Resp BP Sys/Rocha Pulse Ox Last 24 Hr 97.6 F-98.6 F 86-90 18-20 143-170/65-84 92-95 PHYSICAL EXAM GENERAL: lethargic, opens eyes to name, and oriented times person. HEAD: Normal with no signs of trauma. EYES: Pupils equal, round and reactive to light, extraocular movements intact, sclera anicteric, conjunctiva clear. No lid lag. EARS, NOSE, THROAT: Ears normal, nares patent, oropharynx clear without exudates. Moist mucous membranes. NECK: Normal range of motion, supple without lymphadenopathy, JVD, or masses. LUNGS: Breath sounds equal, course rhonchi to apexes, crackles to base with inspiratory wheezes, RR 24, No accessory muscle use. HEART: Regular rate and rhythm, normal S1 and S2 without murmur, rub or gallop. ABDOMEN: Soft, nontender, not distended, normoactive bowel sounds, no guarding, no rebound, no masses. No hepatomegaly or splenomegaly. MUSCULOSKELETAL: Normal range of motion at all joints. No bony deformities or tenderness. No CVA tenderness. UPPER EXTREMITIES: 2+ pulses, warm, well-perfused. No cyanosis. No clubbing. No peripheral edema. LOWER EXTREMITIES: 2+ pulses, warm, well-perfused. No calf tenderness. No peripheral edema. NEUROLOGICAL: Cranial nerves II-XII intact. Normal speech. Normal gait. PSYCHIATRIC: Cooperative. Good eye contact. Appropriate mood and affect. SKIN: Warm, dry, normal turgor, no rashes or lesions noted, normal capillary refill. LABS Laboratory Results - last 24 hr 11/23/17 18:12 Iron 25 L TIBC 90 L Iron Saturation 28 CBC WBC 2.3 K/mm3 (4.0-10.8) L 11/24/17 09:24 RBC 3.35 M/mm3 (3.60-5.2) L D 11/24/17 09:24 Hgb 11.2 GM/dl (10.7-15.3) D 11/24/17 09:24 Hct 33.8 % (32.4-45.2) D 11/24/17 09:24 MCV 101.0 fl (80-96) H 11/24/17 09:24 MCH 33.3 pg (25.7-33.7) 11/24/17 09:24 MCHC 33.0 g/dl (32.0-36.0) 11/24/17 09:24 RDW 20.6 % (11.6-15.6) H D 11/24/17 09:24 Plt Count 76 K/MM3 (134-434) L 11/24/17 09:24 MPV 9.0 fl (7.5-11.1) 11/24/17 09:24 Neutrophils % No Result Required. 11/24/17 09:24 Neutrophils % (Manual) 76.0 % (42.8-82.8) 11/24/17 09:24 Band Neutrophils % 4.0 % (0-10) 11/24/17 09:24 Lymphocytes % No Result Required. 11/24/17 09:24 Lymphocytes % (Manual) 18.0 % (8-40) 11/24/17 09:24 Monocytes % 1.1 % (3.8-10.2) L 11/23/17 11:40 Monocytes % (Manual) 2 % (3.8-10.2) L 11/24/17 09:24 Eosinophils % 0.1 % (0-4.5) 11/23/17 11:40 Basophils % 0.0 % (0-2.0) 11/23/17 11:40 Hypochromia Few 11/24/17 09:24 Platelet Estimate Decreased 11/23/17 18:10 Anisocytosis 3+ 11/24/17 09:24 Macrocytosis 1+ 11/23/17 18:10 Retic Count 1.06 % (0.5-1.5) 11/23/17 18:12 CMP Sodium 141 mmol/L (136-145) 11/25/17 08:23 Potassium 3.0 mmol/L (3.5-5.1) L 11/25/17 08:23 Chloride 100 mmol/L (98-107) 11/25/17 08:23 Carbon Dioxide 31 mmol/L (22-28) H 11/25/17 08:23 Anion Gap 10 (8-16) 11/25/17 08:23 BUN 21 mg/dl (7-18) H D 11/25/17 08:23 Creatinine 0.9 mg/dl (0.6-1.3) 11/25/17 08:23 Creat Clearance w eGFR 58.95 (>60) 11/25/17 08:23 Random Glucose 78 mg/dl (74-106) D 11/25/17 08:23 Lactic Acid 1.1 mmol/L (0.0-2.0) 11/23/17 14:25 Calcium 7.5 mg/dl (8.4-10.2) L 11/25/17 08:23 Phosphorus 3.8 mg/dl (2.5-4.6) 11/24/17 09:24 Magnesium 2.0 mg/dL (1.8-2.4) 11/25/17 08:23 Iron 25 ug/dL (27-139) L 11/23/17 18:12 TIBC 90 ug/dL (250-450) L 11/23/17 18:12 Iron Saturation 28 % (15-55) 11/23/17 18:12 Total Bilirubin 1.1 mg/dl (0.2-1.0) H D 11/25/17 08:23 AST 31 U/L (10-42) 11/25/17 08:23 ALT 19 U/L (10-40) D 11/25/17 08:23 Alkaline Phosphatase 121 U/L (32-92) H 11/25/17 08:23 Creatine Kinase 30 IU/L (26-192) 11/23/17 14:33 Troponin I 0.04 ng/ml (0.03-0.50) 11/23/17 14:33 Total Protein 5.8 g/dl (6.4-8.3) L 11/25/17 08:23 Albumin 1.5 g/dl (3.5-5.0) L 11/25/17 08:23 HOSPITAL COURSE: Community acquired multilobar pneumonia, patient remains afebrile, family wants comfort measures only, agree to abx, comfort measures only, placed on prn 1mg morphine iv q3h for resp distress. macrocytic anemia, 2 units of prbc , pancytopenia, chronic, severe malnutrition, comfort measures only, continue chopped diet. lengthy discussion with both daughters and son, requesting [facility] hospice. PLAN - transfer to [facility] Date of Admission:11/23/17 Date of Discharge: 11/26/17 Minutes to complete discharge: 45 Discharge Summary Reason For Visit: PNEUMONIA Current Active Problems Alzheimer's dementia (Acute) Hypertension (Acute) Pancytopenia (Acute) Pneumonia (Acute) Condition: Poor - Instructions Diet, Activity, Other Instructions: discharge to [facility] for palliative care. Referrals: Poncho Velarde [Primary Care Provider] - Disposition: TRANSFER ACUTE CARE/OTHER HOSP - Home Medications Comprehensive Discharge Medication List: Ambulatory Orders Memantine HCl [Namenda -] 5 mg PO DAILY 11/23/17 Memantine HCl [Namenda -] 10 mg PO HS 11/23/17 Problem List - Problems (1) Hypertension Code(s): I10 - ESSENTIAL (PRIMARY) HYPERTENSION (2) Alzheimer's dementia Code(s): G30.9 - ALZHEIMER'S DISEASE, UNSPECIFIED; F02.80 - DEMENTIA IN OTH DISEASES CLASSD ELSWHR W/O BEHAVRL DISTURB (3) Pancytopenia Code(s): D61.818 - OTHER PANCYTOPENIA (4) Pneumonia Code(s): J18.9 - PNEUMONIA, UNSPECIFIED ORGANISM Qualifiers: Pneumonia type: due to unspecified organism Laterality: bilateral Lung location: unspecified part of lung Qualified Code(s): J18.9 - Pneumonia, unspecified organism
== END 2017-11-26 15:59 | disposition hospice, inpatient (51) | DRG 193 ==
LOC: FER 10:19 → FM/S 18:11
PROVIDERS: ADMIT Internal Medicine; ATTEND Nurse Practitioner Family
PROC: 30233N1 Transfusion of Nonautologous Red Blood Cells into Peripheral Vein, Percutaneous Approach (ICD-10-PCS; principal; 2017-11-23)
DX: J18.9 Pneumonia, unspecified organism (principal); E43 Unspecified severe protein-calorie malnutrition; D61.818 Other pancytopenia; Z68.1 Body mass index [BMI] 19.9 or less, adult; R64 Cachexia; G30.9 Alzheimer's disease, unspecified; F02.80 Dementia in other diseases classified elsewhere, unspecified severity, without behavioral disturbance, psychotic disturbance, mood disturbance, and anxiety; I10 Essential (primary) hypertension; D53.9 Nutritional anemia, unspecified; F09 Unspecified mental disorder due to known physiological condition; E87.6 Hypokalemia
CPT/HCPCS: 36415; 36430; 71045-TC; 71250-TC; 80048; 80053; 81003; 81015; 82272; 82550; 82803; 83540; 83550; 83605; 83735; 84100; 84484; 85025; 85044; 85610; 85730; 86850; 86900; 86901; 86922; 87040; 87086; 87804; 87899; 93005; 94640; 99285-25; P9038; P9058